=== PATIENT | female | born 1985 | race Two or more races ===

== ENCOUNTER 2016-06-05 16:14 | Emergency (ER) | payer OTHER ==
[~2016-06-05] VITALS: Ht 162.6 cm; Wt 72.0 kg
[2016-06-05 16:27] VITALS: Ht 162.6 cm; Wt 72.0 kg
[2016-06-05] MEDS ORDERED: SOD CHLORIDE 0.9% 1,000 ML IV STA (16:51)
[2016-06-05] MEDS ORDERED: LEVETIRACETAM IV 1,000 MG in SOD CHLORIDE 0.9% 100 ML IVPB STA (16:51)
[2016-06-05] MEDS ORDERED: LEVE-5 PO (16:56)
[2016-06-05] MEDS ORDERED: LORA1TAB PO (16:58)
[2016-06-05] MEDS ORDERED: OXCA600T30 PO (17:00)
[2016-06-05 17:35] LABS: BASOPHILS % 0.1 % (0.0-2.0); HEMOGLOBIN 13.5 g/dl (12.0-16.0); LYMPHOCYTES # 1.4 10^3/ul (0.8-2.9); LYMPHOCYTES % 10.7 % (15.0-51.0); MEAN CORPUSCULAR HEMOGLOBIN 30.3 pg (29.0-33.0); MEAN CORPUSCULAR HGB CONC 32.9 g/dl (32.0-37.0); MEAN CORPUSCULAR VOLUME 92.4 fl (82.0-101.0); MEAN PLATELET VOLUME 7.7 fl (7.4-10.4); MONOCYTE # 0.6 10^3/ul (0.3-0.9); MONOCYTES % 4.2 % (0.0-11.0); NEUTROPHIL # 11.3 10^3/ul (1.6-7.5); PLATELET COUNT 315 10^3/UL (140-440); RED BLOOD COUNT 4.44 10^6/ul (4.20-5.40); RED CELL DISTRIBUTION WIDTH 13.4 % (11.5-14.5); UNCORRECTED WBC 13.3 10^3/ul (4.8-10.8); WHITE BLOOD COUNT 13.3 10^3/ul (4.8-10.8)
[2016-06-05 17:39] LABS: CONDITION 1
[2016-06-05 17:40] LABS: POTASSIUM 4.2 mmol/L (3.5-5.1)
[2016-06-05 17:43] LABS: CREATININE 0.59 mg/dl (0.44-1.00)
[2016-06-05 17:44] LABS: CALCIUM 9.8 mg/dl (8.4-10.2)
[2016-06-05] MEDS ORDERED: [UNRECOGNIZED DRUG - CODE] IM (18:19)
--- NOTE | 2016-06-05 18:28 | ERD ---
ER Documentation Chief Complaint Date/Time DATE: 06/05/16 TIME: 18:24 Chief Complaint seizure at the dentist office lasted 1 min hx of sz about 2 times a week HPI This 30-year-old female had a generalized tonic-clonic seizure for 1 minute in the office. She has a history of frequent seizures followed by a neurologist. She is on 3 different seizure medications including Keppra currently. Mother states that she occasionally doesn't take them she is likely to make her feel. She was not postictal by the time she arrived in the emergency room. She currently states that she has a very mild headache. ROS All systems reviewed and are negative except as per history of present illness. Medications Home Meds Active Scripts Diazepam* (Valium*) 5 Mg/Ml Soln, 5 MG IM ONCE for SEIZURES, #10 SYR Prov:ELYSIA GUTIERREZ DO 06/05/16 Reported Medications Oxcarbazepine* (Oxcarbazepine*) 600 Mg Tablet, 600 MG PO QHS, TAB 06/05/16 Lorazepam* (Lorazepam*) 1 Mg Tablet, 1 MG PO DAILY Y for PRN, #30 TAB 06/05/16 Levetiracetam* (Keppra*) 500 Mg Tablet, 1000 MG PO QHS, TAB 06/05/16 Allergies Allergies: Coded Allergies: No Known Allergy (Unverified , 06/05/16) PMhx/Soc Hx Alcohol Use: No Hx Substance Use: No Hx Tobacco Use: No Smoking Status: Current every day smoker Physical Exam Vitals Vital Signs Date Time Temp Pulse Resp B/P Pulse Ox O2 Delivery O2 Flow Rate FiO2 06/05/16 16:27 98.1 108 18 132/83 100 Physical Exam Const: [] Head: Atraumatic Eyes: Normal Conjunctiva ENT: Normal External Ears, Nose and Mouth. Neck: Full range of motion..~ No meningismus. Resp: Clear to auscultation bilaterally Cardio: Regular rate and rhythm, no murmurs Abd: Soft, non tender, non distended. Normal bowel sounds Skin: No petechiae or rashes Back: No midline or flank tenderness Ext: No cyanosis, or edema Neur: Awake and alert Psych: Normal Mood and Affect Result Diagram: 06/05/16 1710 06/05/16 1710 Results 24 hrs Laboratory Tests Test 06/05/16 17:10 Anion Gap 21 Basophils # 0.010^3/ul Basophils % 0.1% Blood Urea Nitrogen 8mg/dl Calcium Level 9.8mg/dl Carbon Dioxide Level 22mmol/L Chloride Level 106mmol/L Creatinine 0.59mg/dl Eosinophils # 0.010^3/ul Eosinophils % 0.0% Glucose Level 89mg/dl Hematocrit 41.0% Hemoglobin 13.5g/dl Lymphocytes # 1.410^3/ul Lymphocytes % 10.7% Mean Corpuscular Hemoglobin 30.3pg Mean Corpuscular Hemoglobin Concent 32.9g/dl Mean Corpuscular Volume 92.4fl Mean Platelet Volume 7.7fl Monocytes # 0.610^3/ul Monocytes % 4.2% Neutrophils # 11.310^3/ul Neutrophils % 85.0% Nucleated Red Blood Cells # 0.010^3/ul Nucleated Red Blood Cells % 0.0/100WBC Platelet Count 69158^3/UL Potassium Level 4.2mmol/L Red Blood Count 4.4410^6/ul Red Cell Distribution Width 13.4% Sodium Level 145mmol/L White Blood Count 13.310^3/ul Current Medications Medications (Trade) Dose Ordered Sig/Susan Route PRN Reason Start Time Stop Time Status Last Admin Dose Admin Sodium Chloride 1,000 ml @ 1,000 mls/hr Q1H STAT IV 06/05/16 16:51 06/05/16 17:50 DC 06/05/16 17:42 Levetiracetam/ Sodium Chloride (Keppra Iv/NS) 110 ml @ 400 mls/hr ONCE STAT IVPB 06/05/16 16:51 06/05/16 17:07 DC 06/05/16 17:42 Procedures/MDM Generalized tonic-clonic seizure in patient with his seizure disorder history and occasional medication noncompliance. Mother is at the bedside. She was given a liter of normal saline as well as 1 g of Keppra IV. She is feeling well and Bactrim normal self nonvented discharge her with primary care follow-up as well as neurological follow-up. She called her neurologist already to schedule an appointment. She has stable vital signs and normal neurological exam. I have very low suspicion for subarachnoid hemorrhage and believe that CT imaging is not necessary in this case. As the risks outweigh the benefits. Departure Diagnosis: Primary Impression: Seizure disorder Condition: Stable Patient Instructions: Seizure, Recurrent [Adult] Additional Instructions: Call your primary care doctor TOMORROW for an appointment during the next 1-2 days.See the doctor sooner or return here if your condition worsens before your appointment time. ELYSIA GUTIERREZ DO Jun 05, 2016 18:27
[2016-06-05 18:44] VITALS: BP 122/78; PULSE 85; RESP 18; TEMP 98
== END 2016-06-05 18:46 | disposition home or self-care (01) ==
LOC: EDBD 16:14 → E/R 16:14
DX: G40.909 Epilepsy, unspecified, not intractable, without status epilepticus (principal); F17.210 Nicotine dependence, cigarettes, uncomplicated; R40.2142 Coma scale, eyes open, spontaneous, at arrival to emergency department; R40.2252 Coma scale, best verbal response, oriented, at arrival to emergency department; R40.2362 Coma scale, best motor response, obeys commands, at arrival to emergency department
CPT/HCPCS: 80048; 85025; J1953; J7030; 36415; 96374